=== PATIENT | female | born 1995 | race African-American/Black ===

== ENCOUNTER 2017-11-02 17:13 | Emergency (ER) | payer SELFPAY | END 2017-11-02 18:51 | disposition home or self-care (01) | LOC: D.ER 17:13 | DX: O26.899 Other specified pregnancy related conditions, unspecified trimester (principal); Z3A.00 Weeks of gestation of pregnancy not specified; R51 Headache; M62.838 Other muscle spasm ==

== ENCOUNTER 2017-11-03 22:22 | Emergency (ER) | payer SELFPAY ==
[2017-11-03 23:27] LABS: APPEARANCE CLEAR (CLEAR); BILIRUBIN NEGATIVE (NEGATIVE); COLOR YELLOW (YELLOW); GLUCOSE NEGATIVE (NEGATIVE); KETONE NEGATIVE (NEGATIVE); NITRITE NEGATIVE (NEGATIVE); PROTEIN NEGATIVE (NEGATIVE); SPECIFIC GRAVITY 1.025 (1.005-1.020); UROBILINOGEN NORMAL (NORMAL)
[2017-11-03 23:28] LABS: EPITHELIAL CELLS 0-5 /hpf (0-5); RED CELLS - URINE 0-5 /hpf (0-5); WHITE CELLS - URINE 0-5 /hpf (0-5)
[2017-11-03 23:29] LABS: BACTERIA FEW /hpf (NONE SEEN); MUCUS <1+ /lpf (NONE SEEN)
== END 2017-11-04 01:10 | disposition home or self-care (01) ==
LOC: D.ER 22:22
PROVIDERS: Emergency Medicine
DX: M54.5 Low back pain (principal); Z32.01 Encounter for pregnancy test, result positive

== ENCOUNTER 2017-12-25 17:58 | Emergency (ER) | payer MEDICAID | END 2017-12-25 19:21 | disposition home or self-care (01) | LOC: D.ER 17:58 | DX: O26.892 Other specified pregnancy related conditions, second trimester (principal); Z3A.21 21 weeks gestation of pregnancy; J11.1 Influenza due to unidentified influenza virus with other respiratory manifestations; R09.89 Other specified symptoms and signs involving the circulatory and respiratory systems; R10.9 Unspecified abdominal pain; R05 Cough ==

== ENCOUNTER → 2018-01-27 19:41 | Outpatient (CLI) | payer MEDICAID ==
[~2018-01-27 19:41] MED LIST: FERROUS SULFAT325 MG PO; FLUTICASONE PRO16 GM NASAL; MEPERIDINE HCL50 MG PO; PRENATAL LOW IR1 TAB PO; PROAIR HFA8.5 GM INH; VALTREX500 MG PO
[2018-04-10 20:34] VITALS: BMI 50.6
== END | disposition home or self-care (01) ==
LOC: D.LDO 19:41
DX: O26.899 Other specified pregnancy related conditions, unspecified trimester (principal); Z3A.00 Weeks of gestation of pregnancy not specified; R07.9 Chest pain, unspecified; R11.2 Nausea with vomiting, unspecified; R19.7 Diarrhea, unspecified

== ENCOUNTER → 2018-03-14 21:35 | Outpatient (CLI) | payer MEDICAID ==
[2018-03-14 22:20] LABS: APPEARANCE CLEAR (CLEAR); BILIRUBIN NEGATIVE (NEGATIVE); COLOR YELLOW (YELLOW); GLUCOSE NEGATIVE (NEGATIVE); KETONE NEGATIVE (NEGATIVE); NITRITE NEGATIVE (NEGATIVE); PROTEIN NEGATIVE (NEGATIVE); UROBILINOGEN NORMAL (NORMAL)
[2018-04-10 20:34] VITALS: BMI 50.6
== END | disposition home or self-care (01) ==
LOC: D.LDO 21:35
PROVIDERS: Obstetrics & Gynecology
DX: O26.893 Other specified pregnancy related conditions, third trimester (principal); Z3A.32 32 weeks gestation of pregnancy; R51 Headache; R60.0 Localized edema

== ENCOUNTER 2018-03-25 22:33 | Outpatient (CLI) | payer MEDICAID ==
[2018-03-25 22:58] LABS: APPEARANCE CLEAR (CLEAR); BILIRUBIN NEGATIVE (NEGATIVE); COLOR YELLOW (YELLOW); GLUCOSE NEGATIVE (NEGATIVE); KETONE NEGATIVE (NEGATIVE); NITRITE NEGATIVE (NEGATIVE); PROTEIN NEGATIVE (NEGATIVE); SPECIFIC GRAVITY 1.015 (1.005-1.020); UROBILINOGEN NORMAL (NORMAL)
[2018-03-25 23:06] LABS: UDS - AMPHET NEGATIVE QUAL (NEGATIVE); UDS - BARB NEGATIVE QUAL (NEGATIVE); UDS - BENZO NEGATIVE QUAL (NEGATIVE); UDS - COCAINE NEGATIVE QUAL (NEGATIVE); UDS - OPIATE NEGATIVE QUAL (NEGATIVE); UDS - PCP NEGATIVE QUAL (NEGATIVE); UDS - THC NEGATIVE QUAL (NEGATIVE)
[2018-04-10 20:34] VITALS: BMI 50.6
== END 2018-03-26 00:34 | disposition home or self-care (01) ==
LOC: D.LDO 22:33 → D.LD 23:59 → D.LDO 03-26 00:34
PROVIDERS: Obstetrics & Gynecology
DX: O26.893 Other specified pregnancy related conditions, third trimester (principal); Z3A.36 36 weeks gestation of pregnancy

== ENCOUNTER → 2018-03-28 15:39 | Outpatient (CLI) | payer MEDICAID ==
[2018-03-28 16:36] LABS: HEMOGLOBIN 10.1 g/dL (12-16); MCH 29.8 pg (26.0-34.0); MCHC 34.8 g/dL (31.0-37.0); MCV 85.5 fL (80.0-100.0); MEAN PLATELET VOLUME 9.6 fL (7.4-10.4); RBC 3.39 10x6/uL (4.00-5.40); RDW 14.6 % (11.5-14.5); WBC 7.7 10x3/uL (4.8-10.8)
[2018-03-28 17:02] LABS: CALC OSMOLALITY 271 mosm/kg (275-300); CARBON DIOXIDE 24.8 mmol/L (21.0-32.0); CHLORIDE - SERUM 103 mmol/L (98-107); CREATININE - SERUM 0.6 mg/dL (0.6-1.3); GLUCOSE 76 mg/dL (74-106); POTASSIUM - SERUM 4.2 mmol/L (3.5-5.1); SODIUM 137 mmol/L (136-145); UREA NITROGEN 10 mg/dL (7-18); URIC ACID 4.1 mg/dL (2.6-7.2); eGFR NON AFRICAN AMERICAN > 90 mL/min (90-120)
[2018-04-10 20:34] VITALS: BMI 50.6
== END | disposition home or self-care (01) ==
LOC: D.LDO 15:39
PROVIDERS: Obstetrics & Gynecology
DX: O26.893 Other specified pregnancy related conditions, third trimester (principal); Z3A.35 35 weeks gestation of pregnancy

== ENCOUNTER 2018-04-10 18:23 | Inpatient (IN) | payer MEDICAID ==
[~2018-04-10] VITALS: Ht 167.6 cm; Wt 142.0 kg
[2018-04-10 19:06] LABS: APPEARANCE CLEAR (CLEAR); BILIRUBIN NEGATIVE (NEGATIVE); COLOR YELLOW (YELLOW); GLUCOSE NEGATIVE (NEGATIVE); KETONE NEGATIVE (NEGATIVE); NITRITE NEGATIVE (NEGATIVE); PROTEIN NEGATIVE (NEGATIVE); SPECIFIC GRAVITY 1.015 (1.005-1.020); UROBILINOGEN NORMAL (NORMAL)
[2018-04-10 20:07] LABS: HEMATOCRIT 29.3 % (36.0-48.0); MCH 29.6 pg (26.0-34.0); MCHC 34.1 g/dL (31.0-37.0); MCV 86.7 fL (80.0-100.0); MEAN PLATELET VOLUME 9.8 fL (7.4-10.4); RBC 3.38 10x6/uL (4.00-5.40); RDW 14.7 % (11.5-14.5); WBC 7.5 10x3/uL (4.8-10.8)
[2018-04-10] MEDS ORDERED: FERROUS SULFAT325 MG PO (20:30)
[2018-04-10] MEDS ORDERED: PRENATAL LOW IR1 TAB PO (20:31)
[2018-04-10] MEDS ORDERED: VALTREX500 MG PO (20:32)
[2018-04-10] MEDS ORDERED: PROAIR HFA8.5 GM INH (20:33)
[2018-04-10 20:34] VITALS: BP 145/83; Ht 167.6 cm; Wt 142.0 kg
[2018-04-10] MEDS ORDERED: FLUTICASONE PRO16 GM NASAL (20:34)
[2018-04-11] VITALS (13 sets, daily range): BP systolic 118–134; BP diastolic 58–72
[2018-04-12 02:08] VITALS: BP 118/60
[2018-04-12 02:12] VITALS: BP 118/60
[2018-04-12 07:36] LABS: RAPID PLASMA REAGIN Non Reactive (Non Reactive)
[2018-04-12 09:38] VITALS: BP 123/65
[2018-04-12 16:33] VITALS: BP 124/58
[2018-04-12 16:50] VITALS: BP 119/67
[2018-04-12 22:45] VITALS: BP 124/58
[2018-04-13 01:29] VITALS: BP 119/58
[2018-04-13 09:38] VITALS: BP 118/73
[2018-04-13 20:00] VITALS: BP 126/61
[2018-04-14 04:12] VITALS: BP 128/57
[2018-04-14 09:51] VITALS: BP 119/64
[2018-04-14 15:30] VITALS: BP 125/74
[2018-04-14 20:00] VITALS: BP 140/74
[2018-04-15 08:51] VITALS: BP 131/63
[2018-04-15] MEDS ORDERED: MEPERIDINE HCL50 MG PO (12:21)
== END 2018-04-15 16:25 | disposition home or self-care (01) | DRG 766 ==
LOC: D.LDO 18:23 → D.LD 19:39
PROVIDERS: Obstetrics & Gynecology
PROC: 10D00Z1 Extraction of Products of Conception, Low, Open Approach (ICD-10-PCS; principal; 2018-04-11 00:36)
PROC: 3E0R3GC Introduction of Other Therapeutic Substance into Spinal Canal, Percutaneous Approach (ICD-10-PCS; 2018-04-12)
DX: O16.4 Unspecified maternal hypertension, complicating childbirth (principal); Z3A.36 36 weeks gestation of pregnancy; Z37.0 Single live birth; O99.824 Streptococcus B carrier state complicating childbirth; O89.4 Spinal and epidural anesthesia-induced headache during the puerperium